=== PATIENT | male | born 1955 | race Caucasian/White ===

== ENCOUNTER → 2016-09-03 | Outpatient (CLI) | payer OTHER ==
[~2016-09-03] MED LIST: ALBUAER2 INH; ALPR1TAB3 PO; ASPI81TA28 PO; BUPR200T2 PO; CHOL100010 PO; CIPR1SUS5 OPR; FLUO40CA8 PO; FLUT1INH INH; GABA800T2 PO; IPRA1AER2 INH; LISI-461 PO; METH1TAB12 PO; METO25TA3 PO; NITR0.4S UT; OPTIRAY 320 IV PRN; PRED10TA PO; PRED1SUS3 OPR; TAMS0.4C38 PO
--- NOTE | 2016-09-03 12:26 | DIAGNOSTIC IMAGING REPORT ---
CHEST CT WITH CONTRAST CT DOSE: 394.89 mGy.cm HISTORY: Cough. Dyspnea. R06.02 SOB (shortness of breath)R91.1 Pulmonary nodule APPT SCHEDE TECHNIQUE: Multiaxial CT images of the chest were performed following the intravenous administration of contrast. COMPARISON: None. FINDINGS: Mediastinal and hilar regions demonstrate several small shotty nodes none of which exceed 6 mm in maximum dimension. Thoracic aorta shows minimal atherosclerotic change. Prominent interstitium throughout both hemithoraces. This is nonspecific. Bibasilar interstitial pneumonitis versus early congestive failure are considered. There are no consolidative or focal infiltrates. Prior median sternotomy. IMPRESSION: 1. Prominent interstitium throughout both hemithoraces considered nonspecific.. 2. Diagnostic considerations include interstitial congestive failure versus a nonspecific interstitial pneumonitis 3. Several small shotty nodes of the hilar and mediastinal regions with no evidence for bulky adenopathy Electronically signed by: Bhavesh Brooke M.D. 09/03/2016 12:24 PM Dictated Date/Time: 09/03/2016 12:18 PM
== END | disposition home or self-care (01) ==
LOC: C.CTS 11:55
PROVIDERS: ATTEND Physician Assistant
DX: R06.02 Shortness of breath (principal); R91.1 Solitary pulmonary nodule

== ENCOUNTER → 2017-01-03 | Outpatient (CLI) | payer OTHER ==
[~2017-01-03] MED LIST changes: -OPTIRAY 320 IV PRN
--- NOTE | 2017-01-04 08:19 | PULMONARY FUNCTION TEST ---
Interpretation based off of ATS criteria. SPIROMETRY: Moderate obstructive ventilatory disease. BRONCHODILATOR: No significant response. LUNG VOLUMES: Signs of hyperinflation with a residual volume of 120%. DIFFUSION: Significantly decreased with a DLCO of 40%, corrects to 82% based off alveolar volume.
== END | disposition home or self-care (01) ==
LOC: C.RC 13:20
PROVIDERS: ATTEND Physician Assistant
DX: J44.9 Chronic obstructive pulmonary disease, unspecified (principal)

== ENCOUNTER 2017-03-09 00:56 | Emergency (ER) | payer OTHER ==
--- NOTE | 2017-03-09 06:19 | EMERGENCY ROOM VISIT NOTE ---
ED Visit Note First contact with patient: 01:06 61 yr old male who arrives via EMS with initially reported SHOB. He refuses to discuss any medical issues with me stating he does not wish to be evaluated nor tested in any way. He refuses to further discuss things other than to say his should no have called the ambulance. I am aware of his brief shob history given EMS had called in requesting medical command to review EKG with me. EMS EKG without STEMI. Patient will not allow testing. He requests immediate discharge and wants us to drive him home. He does not appear acutely intoxicated nor is there overt evidence of injury. I am unable to do exam given his refusal. He is walking around room, talking on phone, and clearly in no respiratory distress from what I can tell. Per his requests he was discharged AMA, aware he can return or call 911 if he does request further evaluation. Of note... my scribe initially started a note on this patient which was cancelled given above.
== END 2017-03-09 01:21 | disposition left against medical advice (07) ==
LOC: EDBD 00:56 → C.EDA 00:57
DX: R06.02 Shortness of breath (principal)

== ENCOUNTER → 2017-05-09 | Day surgery (SDC) | payer OTHER ==
[~2017-05-09] VITALS: Ht 165.1 cm; Wt 91.0 kg
[~2017-05-09] MED LIST changes: +ACETAMINOPHEN 325 MG TAB PO PRN; +ALPRAZOLAM 0.5 MG TAB ONE; +ALPRAZOLAM 0.5 MG TAB PO STA; +ASPIRIN 81 MG CHEW ONE; +CARV12.52 PO; +CHOL100040 PO; +DICL1GEL12; +FENTANYL CITRATE INJ 50 MCG/1 ML 2 ML VIAL ONE; +LISI40TA PO; +LSX/40 PO; +MIDAZOLAM HCL 1 MG/ML 2ML VIAL ONE; +NICO14DI31 TD; +ONDANSETRON INJ 2 MG/ML 2 ML VIAL IV PRN; +POTA10CA28 PO; +SODIUM CHLORIDE 0.9% 1000ML 250 ML IV PRN; +TIOT1SPR INH; +TRAM-10 PO
[2017-05-09 10:29] VITALS: Ht 165.1 cm; Wt 91.0 kg
[2017-05-09 10:30] VITALS: BP 151/99; PULSE 95; TEMP 36.3; O2SAT 88
[2017-05-09 10:56] LABS: ISTAT CREATININE 0.9 mg/dl (0.6-1.3); ISTAT HEMOGLOBIN 10.9 g/dl (14.0-18.0); ISTAT IONIZED CALCIUM 1.18 mmol/l (1.12-1.32)
--- NOTE | 2017-05-09 12:19 | History & Physical Bridge Note ---
H&P Re-Evaluation Bridge Note: I have examined the patient, reviewed the History & Physical and in the interval since the performance of the History & Physical I have noted the following changes of clinical significance: No changes noted
--- NOTE | 2017-05-09 12:19 | Procedure Note ---
Pre-Mod Sedation Assessment General Date of Moderate Sedation: May 09, 2017. Vital Signs: Vital Signs Past 12 Hours Date Time Temp Pulse Resp B/P (MAP) Pulse Ox O2 Delivery O2 Flow Rate FiO2 05/09/17 12:00 94 22 149/104 (119) 96 Nasal Cannula 2 05/09/17 10:30 36.3 95 24 151/99 88 Room Air Review Cardiovascular: regular rate, rhythm, no edema, no gallop, no JVD Abdomen: normal bowel sounds, non tender, soft Lungs: chest non-tender, normal breath sounds, no respiratory distress Pre-Sedation Airway Assessment Oral Cavity: Dentures Short Thick Neck: No Hx of Sleep Apnea: No Smoking Status: Current Every Day Smoker Mallampati Classification: Class III ASA Classification: Class III Procedure Planning Contraindications-for Mod Sed: None Yes Notes The planned sedation has been discussed with the patient and consent obtained. I have identified the patient, determined the appropriateness of sedation and have assessed the patient immediately prior to the procedure. All medicine(s) and interventions are by my order.
--- NOTE | 2017-05-09 12:20 | Procedure Note ---
Post-Mod Sedation Assessment General Date of Moderate Sedation May 09, 2017. Vital Signs: Vital Signs Past 12 Hours Date Time Temp Pulse Resp B/P (MAP) Pulse Ox O2 Delivery O2 Flow Rate FiO2 05/09/17 12:00 94 22 149/104 (119) 96 Nasal Cannula 2 05/09/17 10:30 36.3 95 24 151/99 88 Room Air Review - Discharge Criteria Vital Signs Stable: Yes Alert/Oriented/Conversant: Yes Returned to Baseline Mental St: Yes Nausea Absent/Minimal: Yes Pain/Discomfort/Absent/Minimal: Yes Normal/Baseline Respirations: Yes Active Bleeding?: No Pt Received D/C Instructions: Yes Prescriptions Given: None Specific Proced. D/C Criteria Distal Pulses Present (Cardiac: Yes Groin site assessed-Card Cath: Yes Voided Prior To Discharge: Yes Discharged Patients Adult Escort/Transportation: Yes
--- NOTE | 2017-05-09 12:31 | Cardiac Catheterization ---
Procedure Note Procedure Date May 09, 2017. Pre-Procedure Diagnosis Positive Stress Test, CAD, Cardiomyopathy, Cardiothoracic Symptom AUC Score 8 Post-Procedure Diagnosis Severe CAD, Elevated Intracardiac Pressures Procedure(s) Performed Coronary Angiography, Left Heart Cath, Bypass Graft Angiography, Femoral Artery Angiography Lab Courier Dr. Shearer Well Drill Operator Cable Tool(s) Baron V BELT INSPECTOR Estimated Blood Loss 5cc Medication(s) Fentanyl, Versed, Lidocaine 1% Summary of Findings Severe mentasta vessel disease. Patent bypass grafts: KENNEDY - LAD SVG - OM1 SVG - RPDA - distal RPDA occluded, graft attached to PDA and back fills RPL SVG - Ramus Hemodynamics Rest Ao: 165/125/96 Final Ao: 152/113/84 LV: 156/6/31 Recommendations Medical therapy and/or Counseling Specimens None Radiation Exposure (mGy) 2377 Contrast (mls) 130 Anesthesia Moderate sedation. Start 1125. End 1200, Sedation monitor Kelsey Nuñez RN Procedural Complication(s) None Disposition Centerless Grinder Holding/Recovery ACC Data Cardiac Status Clinical evaluation leading to the procedure CAD Presntation: Stable angina Heart Failure: Yes, NYHA Class: CCS III Stress Testing w/SPECT MPI: Yes - Positive, Risk/Extent of Ischemia ( Intermediate) Coronary Anatomy Dominant: Right Left Main (% Stenosis): Ostial (60%) LAD (% Stenosis): Proximal (100%) Circumflex (% Stenosis): Mid (10%), Distal (10%) OM1 (% Stenosis): Proximal (100%) OM2 (% Stenosis): Proximal (75%) RCA (% Stenosis): Mid (100%) R PDA (% Stenosis): Mid (100% occlusion just distal to SVG anastomosis) R PL1 (% Stenosis): Proximal (30%) Ramus (% Stenosis): Proximal (100%) Grafts - LAD (%): Normal Grafts - Circumflex (%): Normal Grafts - RCA (%): Normal Grafts - Ramus (%): Normal Diagnostic Status: Elective Closure Device Percutaneous Entry Location: Femoral Closure Device: Mynx Recommendations: Medical therapy and/or Counseling Intraprocedure Events Significant Dissection: No Perforation: No
--- NOTE | 2017-05-09 12:35 | Discharge Instructions ---
Discharge Instructions Procedure Procedure Date: May 09, 2017. Reason for Visit: Cad * [place] To Do*. Discharge Discharge Date: May 09, 2017. Discharge Diagnosis: status post cardiac catheterization. Ischemic cardiomyopathy Severe CAD with patient coronary artery bypass grafts. Last Recorded Wt (Kilograms): 91 Anesthesia Post Anesthesia Instructions: If you have had General Anesthesia or IV Sedation: * Do not drive today. * Resume driving when surgeon permits. * Do not make important decisions or sign legal documents today. * Call surgeon for: 1. Temperature elevations greater than 101 degrees F. 2. Uncontrollable pain. 3. Excessive bleeding. 4. Persistent nausea and vomiting. 5. Medication intolerance (nausea, vomiting or rash). * For nausea and vomiting use only clear liquids such as: tea, soda, bouillon until nausea subsides, then gradually increase diet as tolerated. * If you have any concerns or questions, call your surgeon's office. If physician is unavailable and it is an emergency, call 911 or go to the nearest emergency room. Instructions Activity Recommendations: limitations as noted below Return to School/Work: with the following limitations Recommended Home Diet: low sodium, low cholesterol Allergies: Coded Allergies: No Known Allergies (Unverified , 05/01/16) Provider Instructions ACTIVITY RECOMMENDATIONS: It is common to feel weak and fatigue for a few days. * Do not drive or operate any motorized equipment for the next three days. * Limit stair usage (2 or 3 trips a day only) for the next three days. * Do not lift anything heavier than 10 pounds for the next three days. * Do not engage in vigorous exercise or any sports for the next five days. * You may shower the day after your procedure, but do not immerse the area for three days. Cleanse the site gently with soap and water. SPECIAL CARE INSTRUCTIONS: * You may replace the pressure dressing or band-aid the morning after the procedure. * After your procedure, it is normal to have a small bruise or small lump at the site. Examine your site daily for any change in the bruise or lump, redness, swelling, drainage or numbness. Notify your doctor if any change. BLEEDING: * If there is a small amount of bleeding at the site, lie down and apply firm pressure with a clean cloth for ten minutes. When the bleeding stops, lie quietly keeping the procedure limb straight for six hours. Notify your doctor as soon as possible. * If the bleeding does not stop after ten minutes or if there is a large amount of bleeding or spurting, call 911 immediately. Continue to lie down and hold firm pressure until help arrives. SKIN IRRITATION: * You may experience some redness and/or swelling in the area where radiation was administered. If any skin irritation occurs, please contact your family physician. FOLLOW UP VISIT: Keep any scheduled doctor appointments. Follow Up Follow-up with: Dr. Guerrier and Dr. Franks as scheduled. Flower Joyce Recommendations: Call your doctor if: * Temperature above 101 degrees * Pain not relieved by pain medicine ordered * There is increased drainage or redness from any incision * You have any unanswered questions or concerns. Your Doctors Instructions noted above were prepared by provider Roman Shearer. Patient Signature Section: Patient Instructions Signature Page Onofre Love Patient (or Guardian) Signature/Date: I have read and understand the instructions given to me by my caregivers. Caregiver/RN/Doctor Signature/Date: The above-named patient and/or guardian has received patient instructions on this date. + Original Patient Signature Page (only) stays with chart. Please make copy for patient.
[2017-05-09 14:00] VITALS: BP 122/94; PULSE 84; O2SAT 95
== END | disposition home or self-care (01) ==
LOC: C.CATH 09:56
PROVIDERS: ATTEND Internal Medicine Cardiovascular Disease
DX: I25.10 Atherosclerotic heart disease of native coronary artery without angina pectoris (principal); Z95.5 Presence of coronary angioplasty implant and graft; F17.210 Nicotine dependence, cigarettes, uncomplicated; F31.9 Bipolar disorder, unspecified; J44.9 Chronic obstructive pulmonary disease, unspecified; E78.5 Hyperlipidemia, unspecified; I10 Essential (primary) hypertension; Z79.82 Long term (current) use of aspirin